=== PATIENT | female | born 1970 | race Native Hawaiian/Other Pacific Islander ===

== ENCOUNTER 2019-02-12 12:50 | Outpatient (CLI) | payer OTHER | END 2019-02-12 23:59 | disposition home or self-care (01) | LOC: MAMMO 12:50 | DX: Z12.31 Encounter for screening mammogram for malignant neoplasm of breast (principal) ==

== ENCOUNTER 2020-02-18 08:37 | Outpatient (CLI) | payer OTHER | END 2020-02-18 20:25 | disposition home or self-care (01) | LOC: MAMMO 08:37 | DX: Z12.31 Encounter for screening mammogram for malignant neoplasm of breast (principal) ==

== ENCOUNTER 2021-02-22 08:35 | Outpatient (CLI) | payer OTHER | END 2021-02-22 20:06 | disposition home or self-care (01) | LOC: MAMMO 08:35 | PROVIDERS: ATTEND Obstetrics & Gynecology | DX: Z12.31 Encounter for screening mammogram for malignant neoplasm of breast (principal) ==

== ENCOUNTER 2022-02-28 07:57 | Outpatient (CLI) | payer OTHER | END 2022-02-28 19:26 | disposition home or self-care (01) | LOC: RAD 07:57 | PROVIDERS: ATTEND Obstetrics & Gynecology | DX: Z13.820 Encounter for screening for osteoporosis (principal); Z12.31 Encounter for screening mammogram for malignant neoplasm of breast ==